=== PATIENT | male | born 1965 | race Caucasian/White ===

== ENCOUNTER 2017-06-11 13:12 | Inpatient (IN) | payer SELFPAY ==
[~2017-06-11] VITALS: Ht 167.6 cm; Wt 56.7 kg
--- NOTE | ~2017-06-11 | CON ---
[place], [place] REPORT OF CONSULTATION [id number] UN[facility] #: [id number] ROOM: 406 DOCTOR: ANGIE ODONNELLSURYA BIRTHDATE: [birth year] DOS: 06/11/2017 HISTORY OF PRESENT ILLNESS: This is a 52 years old patient who was presented to Emergency Room with chief complaint of epigastric chest pain. The patient avid nicotine and alcohol consumer of two 6 packs of beer every evening and smoking a pack of cigarette daily. The patient with a history of previous esophageal distress and dysphagia. PAST MEDICAL HISTORY: Otherwise, gastritis, COPD. PAST SURGICAL HISTORY: Unremarkable otherwise. SOCIAL HISTORY: Alcohol and nicotine. FAMILY HISTORY: Noncontributory. ALLERGIES: To no known medications. MEDICATIONS: Medication at home: None. REVIEW OF SYSTEMS: HEENT: Denies double vision, blurred vision. RESPIRATORY: Denies acute shortness of breath. CARDIOVASCULAR: Denies typical chest pain. DIGESTIVE SYSTEM: Substernal pain, dysphagia, periodically. PHYSICAL EXAMINATION: GENERAL: Nontoxic patient comfortable. He just finished his dinner. HEENT: Head, normocephalic, nontraumatic. Mouth and buccal mucosa benign. NECK: Supple, no thyromegaly. CHEST: Symmetric anatomy, equal expansion. No wheeze, no rhonchi. Decreased air entry in general. HEART: Normal sinus rhythm, no gallop, no murmur. ABDOMEN: Soft. No hepato-organomegaly. Bowel sounds present. No pulsatile mass. EXTREMITIES: No cyanosis, no pedal edema. NEUROLOGIC: Alert, oriented to time, place, person. IMPRESSION: Atypical chest pain, possible esophageal stricture, esophagitis. The patient with aggressive alcohol and nicotine dependency of two 6 pack of beer every evening and a pack of cigarette, on no medication; otherwise, labs reviewed, records reviewed, history of dysphagia in the past. CBC: White blood cell 4.9, H and H of 15 and 43. His platelets has been 173. INR 0.9. Comprehensive metabolic panel, electrolyte balance, liver function tests, SGOT 36. Alkaline phosphatase 168 abnormality secondary to aggressive alcohol consumption. Chest x-ray normal. Labs reviewed, records reviewed. PLAN: Cardiac assessment, and if negative, we will follow up as outpatient for evaluation of esophagus. [place], [place] REPORT OF CONSULTATION NAME: LIANAKENYETTA D UNIT #: [id number] ROOM: 406 DOCTOR: ANGIE ODONNELL,SURYA BIRTHDATE: [birth year] SURYA ADAMS MD CM:CONSTR:REPORT OF CONSULTATION 1656 06/11/17 2248 interface
--- NOTE | ~2017-06-11 | CON ---
[place], [place] REPORT OF CONSULTATION NAME[id number] UNIT #: [id number] ROOM: 406 DOCTOR: SHYANNE SANTACRUZ MD BIRTHDATE: [birth year] DOS: 06/11/2017 REFERRED BY: Hospitalist physician for evaluation of chest pain. CHIEF COMPLAINT: Substernal precordial pain. HISTORY OF PRESENT ILLNESS: The patient is a 52-year-old man who denies any previous history of heart disease. He does have risk factors of tobacco abuse and a possible family history of heart disease. He states that he was shaving and getting ready for work when he developed a severe stabbing pain in his central chest. This was associated with shortness of breath, nausea and vomiting. The pain came and went and so he finally came to the Emergency Room. In the Emergency Room, his electrocardiogram showed no acute changes and cardiac biomarkers are negative thus far. The patient does have a history of dysphagia and had a piece of meat stuck in his esophagus in the past. He does have occasional episodes of dysphagia since then. He does have esophageal reflux disease and does have a history of daily alcohol use. PAST MEDICAL HISTORY: Includes: 1. Cigarette abuse with a history of chronic obstructive pulmonary disease. 2. Alcohol abuse. 3. History of multiple left rib fractures with pneumothorax. 4. History of gastritis. 5. No previous history of diabetes, myocardial infarction or stroke. FAMILY HISTORY: The patient's father of complications of Alzheimer disease and he may have had cardiac arrhythmia as well. His mother has diabetes and hypertension. REVIEW OF SYSTEMS: The patient denies diplopia or loss of vision. He denies focal weakness. He denies lightheadedness or syncope. Denies fevers, chills, sweats or recent weight changes. He denies orthopnea or PND. He denies palpitations. He had chest pain as noted above. He does have cough and shortness of breath as well as dyspnea on exertion. He denies hemoptysis or hematemesis. He denies any change in bowel or bladder habits. He denies blood in his stools or urine. He denies any skin rashes. He denies peripheral edema. He denies any history of blood clots. The remainder of the review of systems is negative except as noted above. SOCIAL HISTORY: The patient does smoke at least a pack a day and drinks beer on a daily basis. 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 PHYSICAL EXAMINATION: GENERAL: The patient is a slender white male who looks older than his stated age. VITAL SIGNS: Pulse is 82 and regular. Blood pressure is 158/93. He is afebrile. HEENT: Normocephalic, atraumatic. Extraocular muscles are intact. Sclerae are [place], [place] REPORT OF CONSULTATION NAME: KENYETTA GAINES UNIT #: [id number] ROOM: 406 DOCTOR: SHYANNE SANTACRUZ MD BIRTHDATE: [birth year] clear. Pupils are equal, round and react to light. The oral mucosa is moist. Tongue is midline. NECK: Supple. He has no jugular distention. Carotids are full. I heard no bruits. He had no neck or supraclavicular masses and no thyromegaly. LUNGS: Respirations are unlabored. His chest has decreased breath sounds at the bases, but no wheezes or rales. He has no precordial chest wall pain and no presacral edema. I could not reproduce his chest pain by palpation of the chest or abdomen. HEART: Has a regular rhythm. He has a fourth heart sound, but no third heart sound or murmur. The PMI is not displaced. There is no precordial heave, lift or thrill. ABDOMEN: Soft and normally active without masses, organomegaly, bruits or tenderness. There is no rebound. EXTREMITIES: No edema. Peripheral pulses are palpable in the feet. He has no palpable cords or Homans sign. No skin rashes are obvious. LABORATORY DATA: I reviewed his electrocardiograms. They show sinus rhythm and normal tracings. Hemoglobin is 15.6, white count 4900, platelet count 173,000. Sodium 138, potassium 3.5, BUN 6, creatinine 1.08. Troponin has been normal x 2. IMPRESSION: 1. Atypical precordial chest pain. This is most likely GI in origin and may be related to esophagitis, esophageal spasm, etc. The patient does, however, have brief risk factors for coronary artery disease. We will therefore follow serial electrocardiograms and enzymes and if these are normal, plan on an exercise myocardial perfusion study within the next 24 hours. 2. Alcohol abuse. 3. Cigarette abuse. PLAN: As above. I thank the hospitalist group for asking our advice regarding the patient's care. SHYANNE SANTACRUZ MD CM:CONSTR:REPORT OF CONSULTATION 1752 06/11/17 2313 interface
--- NOTE | ~2017-06-11 | PR ---
[place], [place] PROGRESS NOTE NAME: [id number] UNIT #: [id number] ROOM: 406 DOCTOR: SHYANNE SANTACRUZ MD BIRTHDATE: [birth year] DOS: 06/12/2017 SUBJECTIVE: The patient was seen in the Cardiology Department just prior to his stress test. He states that overnight, he did have recurrence of his chest pain, but it resolved spontaneously. He was also evaluated by Dr. Sorto who is planning on doing an outpatient upper endoscopy. Overnight, the patient's laboratory studies showed no acute change or elevation in troponin. His electrocardiogram shows no change in this morning. PHYSICAL EXAMINATION: VITAL SIGNS: His pulse is 77 and regular, blood pressure is 132/88. He is afebrile. NECK: Supple. He has no jugular distention. Carotids are full. LUNGS: Respirations are unlabored. His chest is clear to auscultation and percussion. HEART: Has regular rhythm with an S4 gallop, but no S3 or murmur. The PMI is not displaced. EXTREMITIES: Showed no edema. IMPRESSION: Atypical chest pain, most likely this is gastrointestinal in origin. Thus far, the patient shows no objective findings to suggest an acute coronary syndrome. PLAN: We will proceed with an exercise myocardial perfusion study today. Further recommendations will depend upon the results of the stress test. SHYANNE SANTACRUZ MD CM:PNTRANS 1058 [id number] SHYANNE SANTACRUZ MD 06/12/17 1117 interface
[2017-06-11 13:12] VITALS: BP 147/96
[~2017-06-11 13:12] MED LIST: ACETAMINOPHEN-H1 TA2 PO; DOXYCYCLINE MO100 MG PO; IBU800 MG PO; KROGER NIC21 MG/24 H T; MUCINEX DM 30/61 TAB PO; PEPCID20 MG PO; PROZAC20 MG PO; ULTRAM50 MG PO; VENTOLIN H0.09 MG/AC INH; XANAX0.25 MG PO; ZITHROMAX250 MG PO
[2017-06-11 13:33] LABS: BASO # 0.1 10*3/uL (0.0-0.1); EOS % 0.8 % (1.0-4.0); HEMATOCRIT 43.8 % (42.0-52.0); HEMOGLOBIN 15.6 g/dl (14.0-18.0); LYMPH # 1.5 10*3/uL (1.3-4.4); LYMPH % 29.5 % (27.0-41.0); MEAN CELL VOLUME 98.4 fl (80.0-94.0); MEAN CORPUSCULAR HGB 35.1 pg (27.0-31.0); MEAN CORPUSCULAR HGB CONC 35.6 g/dl (33.0-37.0); MONO # 0.5 10*3/uL (0.1-1.0); MONO % 9.8 % (3.0-9.0); NEUT # 2.9 10*3/uL (2.3-7.9); NEUT % 58.7 % (47.0-73.0); PLATELET COUNT AUTOMATED 173 10*3/uL (130-400); RED BLOOD COUNT 4.45 10*6/uL (4.50-5.90); RED CELL DISTRI WIDTH 11.7 % (0-14.5); WHITE BLOOD COUNT 4.9 10*3/uL (4.8-10.8)
[2017-06-11 13:42] LABS: ACT PARTIAL THROMBO TIME 24.8 SECONDS (20.8-31.5); INTERNATIONAL NORM RATIO 0.9 (2.0-3.5)
[2017-06-11 13:52] LABS: ALBUMIN 3.4 gm/dl (3.1-4.5); ALKALINE PHOSPHATASE 168 U/L (45-117); BUN 6 mg/dl (7-24); CHLORIDE 104 mmol/L (98-107); CREATININE 1.08 mg/dL (0.70-1.30); POTASSIUM 3.5 mmol/L (3.5-5.1); SGOT/AST 36 IU/L (3-35); SGPT/ALT 20 U/L (12-78); SODIUM 138 mmol/L (136-145); TOTAL PROTEIN 7.3 gm/dL (6.4-8.2)
[2017-06-11 13:53] VITALS: BP 140/82
[2017-06-11 13:54] LABS: TROPONIN I < 0.015 ng/ml (<0.045)
[2017-06-11 15:00] VITALS: BP 158/93
[2017-06-11 20:00] VITALS: BP 127/81
[2017-06-12] VITALS: BP 136/90
[2017-06-12 07:24] LABS: BASO # 0.1 10*3/uL (0.0-0.1); BASO % 1.5 % (0.0-1.0); EOS # 0.1 10*3/uL (0.0-0.4); EOS % 1.3 % (1.0-4.0); HEMATOCRIT 46.5 % (42.0-52.0); HEMOGLOBIN 16.3 g/dl (14.0-18.0); LYMPH # 1.4 10*3/uL (1.3-4.4); LYMPH % 26.2 % (27.0-41.0); MEAN CELL VOLUME 99.1 fl (80.0-94.0); MEAN CORPUSCULAR HGB 34.8 pg (27.0-31.0); MEAN CORPUSCULAR HGB CONC 35.1 g/dl (33.0-37.0); MEAN PLATELET VOLUME 10.1 fl (9.6-12.3); MONO # 0.5 10*3/uL (0.1-1.0); MONO % 9.8 % (3.0-9.0); NEUT # 3.2 10*3/uL (2.3-7.9); PLATELET COUNT AUTOMATED 164 10*3/uL (130-400); RED BLOOD COUNT 4.69 10*6/uL (4.50-5.90); RED CELL DISTRI WIDTH 11.8 % (0-14.5); WHITE BLOOD COUNT 5.2 10*3/uL (4.8-10.8)
[2017-06-12 07:52] LABS: ALBUMIN 3.3 gm/dl (3.1-4.5); ALKALINE PHOSPHATASE 159 U/L (45-117); BUN 8 mg/dl (7-24); CHLORIDE 107 mmol/L (98-107); CHOLESTEROL 156 mg/dL (<200); CREATININE 0.93 mg/dL (0.70-1.30); FREE T4 1.15 ng/dl (0.76-1.46); HDL CHOLESTEROL 85 mg/dl (40-60); LDL CHOLESTEROL 50 mg/dL (9-159); PHOSPHOROUS 2.9 mg/dL (2.5-4.9); POTASSIUM 3.6 mmol/L (3.5-5.1); SGOT/AST 32 IU/L (3-35); SGPT/ALT 19 U/L (12-78); SODIUM 141 mmol/L (136-145); TRIGLYCERIDES 106 mg/dl (<150); VLDL CHOLESTEROL 21 mg/dL (6-40)
[2017-06-12 08:00] VITALS: BP 132/88
[2017-06-12 08:24] LABS: VITAMIN D, 25-HYDROXY 8.6 ng/mL (30-100)
[2017-06-12 16:00] VITALS: BP 120/76
[2017-06-12] MEDS ORDERED: VITAMIN D-32000 UNIT PO (17:16)
[2017-06-12] MEDS ORDERED: OMEPRAZOLE20 M2 PO (18:35)
== END 2017-06-12 18:56 | disposition home or self-care (01) | DRG 206 ==
LOC: ED 13:12 → 4E 14:08 → EDHOLD 14:08 → 4E 14:36
PROVIDERS: Student in an Organized Health Care Education/Training Program
PROC: 4A02XM4 Measurement of Cardiac Total Activity, External Approach (ICD-10-PCS; principal; 2017-06-12)
DX: M94.0 Chondrocostal junction syndrome [Tietze] (principal); E83.41 Hypermagnesemia; R13.10 Dysphagia, unspecified; K21.9 Gastro-esophageal reflux disease without esophagitis; R09.1 Pleurisy; D75.89 Other specified diseases of blood and blood-forming organs; F10.10 Alcohol abuse, uncomplicated; J44.9 Chronic obstructive pulmonary disease, unspecified; F17.210 Nicotine dependence, cigarettes, uncomplicated; Z71.6 Tobacco abuse counseling

== ENCOUNTER → 2017-06-21 | Outpatient (CLI) | payer SELFPAY ==
[~2017-06-21] MED LIST changes: +OMEPRAZOLE20 M2 PO; +VITAMIN D-32000 UNIT PO
== END ==
LOC: RESCLI 02:26
DX: Z09 Encounter for follow-up examination after completed treatment for conditions other than malignant neoplasm (principal); K29.50 Unspecified chronic gastritis without bleeding; E55.9 Vitamin D deficiency, unspecified; R13.10 Dysphagia, unspecified; J44.9 Chronic obstructive pulmonary disease, unspecified; Z72.0 Tobacco use; Z71.6 Tobacco abuse counseling

== ENCOUNTER → 2017-07-07 | Day surgery (SDC) | payer SELFPAY ==
[~2017-07-07] VITALS: Ht 167.6 cm; Wt 56.7 kg
--- NOTE | ~2017-07-07 | O ---
[place], [place] OPERATIVE NOTE NAME: LIANATERRIEMerna King UNIT #: [id number] ROOM: DOCTOR: SURYA ADAMS MD BIRTHDATE: [birth year] DOS: 07/07/2017 GASTROENDOSCOPIC REPORT INDICATIONS: This is a 52-year-old patient who presented with dyspepsia, dysphagia, undergoing investigation. PAST MEDICAL HISTORY: Essentially unremarkable except dyspepsia, dysphagia. ALLERGIES: No known medication. PAST SURGICAL HISTORY: Nil. PAST MEDICAL HISTORY: As identified above. PROCEDURE: Today's procedure part of investigation is panendoscopy plus biopsy of distal esophagus plus balloon dilation of esophagus. PREMEDICATION: Versed and Diprivan. SCOPE: Olympus forward-viewing gastroscope Q10 video. REPORT: After putting the patient in left lateral position and application of lubricant to the scope, the scope was introduced. Thereafter, under direct visualization, I advanced through the length of esophagus without difficulty. Short segment Zhong esophagus above the hiatal hernia was noticed. Biopsies obtained. Gastric pouch was entered. Gastritis seen. Duodenal bulb, second and third part within normal limit. The patient extubated to the proximal stomach, a balloon size 20 was utilized; however, up to pressure 19 was used and distal as well as upper esophagus was dilated. The patient extubated, tolerated procedure well. IMPRESSION: Distal esophageal and upper esophageal stricture, short segment Zhong esophagus, status post biopsy, hiatal hernia, gastritis. PLAN AND DISCUSSION: This gentleman is on omeprazole already, 20 mg daily for the next 2 weeks. I will ask him to increase his omeprazole to 20 mg b.i.d. as well today and tomorrow to stay on ice cream, milk shake, ice cold Jell-O to prevent food trauma to the mucosal pathology of residual fracturing of the mucosa which is intended with dilation. Otherwise, follow up routinely with you in office and p.r.n. visit with us in GI Clinic. Thank you very much indeed. [place], [place] OPERATIVE NOTE NAME: KENYETTA GAINES UNIT #: [id number] ROOM: DOCTOR: SURYA ADAMS MD BIRTHDATE: [birth year] SURYA ADAMS MD CM:OPRECORD:OPERATIVE NOTE 1123 1405 SURYA ADAMS MD 07/07/17 1404 interface
[2017-07-07 09:40] VITALS: BP 155/91
[2017-07-07 11:12] VITALS: BP 118/74
[2017-07-07 11:22] VITALS: BP 113/75
[2017-07-07 11:42] VITALS: BP 131/91
== END | disposition home or self-care (01) ==
LOC: SDC 07-04 14:45
DX: K22.2 Esophageal obstruction (principal); K44.9 Diaphragmatic hernia without obstruction or gangrene; K22.70 Barrett's esophagus without dysplasia; F41.9 Anxiety disorder, unspecified; F17.210 Nicotine dependence, cigarettes, uncomplicated; Z82.49 Family history of ischemic heart disease and other diseases of the circulatory system

== ENCOUNTER → 2017-08-18 | Day surgery (SDC) | payer SELFPAY ==
[~2017-08-18] VITALS: Ht 167.6 cm; Wt 58.1 kg
--- NOTE | ~2017-08-18 | O ---
[place], [place] OPERATIVE NOTE NAME: LIANAKENYETTA King UNIT #: [id number] ROOM: DOCTOR: SURYA ADAMS MD BIRTHDATE: [birth year] DOS: 08/18/2017 INDICATIONS: This is a 52-year-old patient who has presented with chief complaint of dyspepsia, dysphagia and colonic screening, undergoing investigation. ALLERGIES: To no known medications. PAST MEDICAL HISTORY: COPD. PAST SURGICAL HISTORY: Unremarkable. FAMILY HISTORY: Grandfather and uncles with colon carcinoma. SOCIAL HISTORY: Udg-uph-u-half pack smoker, 6-10 beers per night drinking. PROCEDURE: Today's procedure part of investigation is panendoscopy and colonoscopy. PREMEDICATION: Versed and Diprivan. SCOPE: Olympus forward-viewing gastroscope Q10 video. REPORT: After putting the patient in left lateral position and application of lubricant to the scope, the scope was introduced. Thereafter, under direct visualization, advanced through the length of esophagus without difficulty. Benign stricture was identified. This is mostly in cervical esophagus. Gastric pouch was entered. Short segment Zhong esophagus noticed. Gastritis seen. Antral biopsy obtained. Duodenal bulb, second and third part within normal limits. Balloon size 18 utilized and esophagus was dilated. The patient extubated, tolerated procedure well. IMPRESSION: Benign esophageal stricture, status post balloon dilation; gastritis, status post biopsy; and short segment Zhong, status post biopsy. PLAN AND DISCUSSION: Prilosec 20 mg 1 b.i.d. The patient advised to abstain from smoking lrz-jra-a-half pack of cigarettes and 10 beers per day. Furthermore, we are going to proceed with his colonoscopy. INDICATIONS: The patient has presented with colonic screening concerns. PROCEDURE: Today's procedure part of investigation is colonoscopy plus piecemeal polypectomy. PREMEDICATION: Versed and Diprivan. SCOPE: Olympus folding colonoscope 10L video. REPORT: After putting the patient in left lateral position and application of lubricant to rectal pouch and digital examination, the scope was introduced. [place], [place] OPERATIVE NOTE NAME: KENYETTA GAINES UNIT #: [id number] ROOM: DOCTOR: SURYA ADAMS MD BIRTHDATE: [birth year] Thereafter, under direct visualization, advanced through the length of colon without difficulty. Sessile polypoid lesion from sigmoid colon with piecemeal polypectomy removed. Base of the cecum explored, appendiceal orifice identified, and ileocecal valve was defined. The patient extubated, tolerated procedure well. IMPRESSION: Sessile polypoid lesion in sigmoid colon, status post piecemeal polypectomy. PLAN: High fiber fruit diet. Avoiding cpn-mlc-j-half pack of cigarettes per day and avoiding 10 beers per day. SURYA ADAMS MD CM:OPRECORD:OPERATIVE NOTE 1413 03 SURYA ADAMS MD 08/18/17 1704 interface
[2017-08-18 14:00] VITALS: BP 102/65
[2017-08-18 14:15] VITALS: BP 114/75
[2017-08-18 14:30] VITALS: BP 123/83
== END | disposition home or self-care (01) ==
LOC: SDC 08-14 12:30
DX: Z12.11 Encounter for screening for malignant neoplasm of colon (principal); D12.5 Benign neoplasm of sigmoid colon; K29.50 Unspecified chronic gastritis without bleeding; K22.2 Esophageal obstruction; J44.9 Chronic obstructive pulmonary disease, unspecified; F17.210 Nicotine dependence, cigarettes, uncomplicated; Z79.899 Other long term (current) drug therapy; Z80.0 Family history of malignant neoplasm of digestive organs

== ENCOUNTER → 2017-09-18 | Outpatient (CLI) | payer SELFPAY | END | disposition home or self-care (01) | LOC: RESCLI 00:01 | DX: K29.50 Unspecified chronic gastritis without bleeding (principal); E55.9 Vitamin D deficiency, unspecified; J44.9 Chronic obstructive pulmonary disease, unspecified; F41.9 Anxiety disorder, unspecified; K22.710 Barrett's esophagus with low grade dysplasia; K21.0 Gastro-esophageal reflux disease with esophagitis; K44.9 Diaphragmatic hernia without obstruction or gangrene; F17.210 Nicotine dependence, cigarettes, uncomplicated; Z87.19 Personal history of other diseases of the digestive system; Z98.890 Other specified postprocedural states; Z71.6 Tobacco abuse counseling ==

== ENCOUNTER → 2017-11-13 | Outpatient (CLI) | payer SELFPAY | END | disposition home or self-care (01) | LOC: RESCLI 04:55 | DX: K29.50 Unspecified chronic gastritis without bleeding (principal); K21.0 Gastro-esophageal reflux disease with esophagitis; E55.9 Vitamin D deficiency, unspecified; J44.9 Chronic obstructive pulmonary disease, unspecified; F41.9 Anxiety disorder, unspecified; K22.710 Barrett's esophagus with low grade dysplasia; K44.9 Diaphragmatic hernia without obstruction or gangrene; F17.210 Nicotine dependence, cigarettes, uncomplicated; E66.3 Overweight; Z71.6 Tobacco abuse counseling ==

== ENCOUNTER 2018-01-07 12:04 | Inpatient (IN) | payer SELFPAY ==
[2018-01-07] VITALS (8 sets, daily range): BP systolic 134–157; BP diastolic 82–100
[~2018-01-07] VITALS: Ht 167.6 cm; Wt 55.5 kg
--- NOTE | ~2018-01-07 | EKG ---
[place], [place] ELECTROCARDIOGRAM REPORT NAME: KENYETTA GAINES UNIT #: [id number] ROOM: 521 DOCTOR: KIT DRAFT REPORT BIRTHDATE: [birth year] [facility] Test Date: 2018-01-07 Test Time: 12:07:12 Pat Name: KENYETTA GAINES Department: Room: 521 Gender: M Behavioral Health Care Coordinator: EKG.MN : 1965 Requested By: SANDRA DIAZ Order Number: [id number] Reading MD: Torin Dietz MD Measurements Intervals [place] Rate: 89 P: 79 ID: 122 QRS: 79 QRSD: 96 T: 48 QT: 369 QTc: 449 Interpretive Statements Sinus rhythm Probable left atrial enlargement Anteroseptal infarct, age indeterminate Electronically Signed On 01-08-2018 16:48:27 PDT by Torin Dietz MD CM:EKGRPT:ELECTROCARDIOGRAM REPORT 1207 1648 SANDRA PANTOJA DRAFT REPORT SANDRA DIAZ M.D.
[2018-01-07 12:27] LABS: BASO # 0.1 10*3/uL (0.0-0.1); BASO % 1.2 % (0.0-1.0); EOS # 0.1 10*3/uL (0.0-0.4); EOS % 1.8 % (1.0-4.0); HEMOGLOBIN 17.2 g/dl (14.0-18.0); LYMPH # 1.3 10*3/uL (1.3-4.4); LYMPH % 25.8 % (27.0-41.0); MEAN CELL VOLUME 97.4 fl (80.0-94.0); MEAN CORPUSCULAR HGB 34.2 pg (27.0-31.0); MEAN CORPUSCULAR HGB CONC 35.1 g/dl (33.0-37.0); MONO # 0.5 10*3/uL (0.1-1.0); NEUT # 3.2 10*3/uL (2.3-7.9); PLATELET COUNT AUTOMATED 149 10*3/uL (130-400); RED BLOOD COUNT 5.03 10*6/uL (4.50-5.90); RED CELL DISTRI WIDTH 11.9 % (0-14.5); WHITE BLOOD COUNT 5.1 10*3/uL (4.8-10.8)
[2018-01-07 12:44] LABS: ALBUMIN 3.5 gm/dl (3.1-4.5); ALKALINE PHOSPHATASE 148 U/L (45-117); BUN 4 mg/dl (7-24); CHLORIDE 105 mmol/L (98-107); CREATININE 1.01 mg/dL (0.70-1.30); POTASSIUM 3.8 mmol/L (3.5-5.1); SGOT/AST 24 IU/L (3-35); SGPT/ALT 15 U/L (12-78); SODIUM 139 mmol/L (136-145); TOTAL PROTEIN 7.1 gm/dL (6.4-8.2)
[2018-01-07 12:45] LABS: TROPONIN I < 0.015 ng/ml (<0.045)
[2018-01-07] MEDS ORDERED: PRILOSEC20 M1 PO (16:52)
[2018-01-08] VITALS: BP 123/79
[2018-01-08 06:32] LABS: BASO # 0.1 10*3/uL (0.0-0.1); BASO % 1.4 % (0.0-1.0); EOS # 0.1 10*3/uL (0.0-0.4); EOS % 2.5 % (1.0-4.0); HEMATOCRIT 48.7 % (42.0-52.0); HEMOGLOBIN 16.8 g/dl (14.0-18.0); LYMPH # 1.8 10*3/uL (1.3-4.4); LYMPH % 36.2 % (27.0-41.0); MEAN CORPUSCULAR HGB 34.1 pg (27.0-31.0); MEAN CORPUSCULAR HGB CONC 34.5 g/dl (33.0-37.0); MEAN PLATELET VOLUME 10.3 fl (9.6-12.3); MONO # 0.5 10*3/uL (0.1-1.0); MONO % 9.4 % (3.0-9.0); NEUT # 2.5 10*3/uL (2.3-7.9); NEUT % 50.3 % (47.0-73.0); PLATELET COUNT AUTOMATED 138 10*3/uL (130-400); RED BLOOD COUNT 4.92 10*6/uL (4.50-5.90); RED CELL DISTRI WIDTH 11.9 % (0-14.5); WHITE BLOOD COUNT 4.9 10*3/uL (4.8-10.8)
[2018-01-08 06:59] LABS: ACT PARTIAL THROMBO TIME 22.7 SECONDS (20.8-31.5)
[2018-01-08 07:04] LABS: ALBUMIN 3.3 gm/dl (3.1-4.5); BUN 9 mg/dl (7-24); CHLORIDE 109 mmol/L (98-107); POTASSIUM 3.8 mmol/L (3.5-5.1); SODIUM 141 mmol/L (136-145)
[2018-01-08 07:13] LABS: ALKALINE PHOSPHATASE 133 U/L (45-117); CHOLESTEROL 138 mg/dL (<200); CREATININE 0.87 mg/dL (0.70-1.30); FREE T4 0.92 ng/dl (0.76-1.46); HDL CHOLESTEROL 56 mg/dl (40-60); LDL CHOLESTEROL 58 mg/dL (9-159); PHOSPHOROUS 2.8 mg/dL (2.5-4.9); SGOT/AST 25 IU/L (3-35); SGPT/ALT 16 U/L (12-78); TOTAL PROTEIN 6.7 gm/dL (6.4-8.2); TRIGLYCERIDES 118 mg/dl (<150); VLDL CHOLESTEROL 24 mg/dL (6-40)
[2018-01-08 07:36] LABS: VITAMIN D, 25-HYDROXY 36.3 ng/mL (30-100)
[2018-01-08 08:00] VITALS: BP 124/84; BP 139/80
[2018-01-08] MEDS ORDERED: PRILOSEC20 M1 PO (11:21)
[2018-01-08 12:00] VITALS: BP 116/80
== END 2018-01-08 12:05 | disposition home or self-care (01) | DRG 392 ==
LOC: ED 12:04 → 5E 15:57 → EDHOLD 15:57 → 5E 16:04
PROVIDERS: Emergency Medicine; Internal Medicine
DX: K21.9 Gastro-esophageal reflux disease without esophagitis (principal); R13.10 Dysphagia, unspecified; F10.10 Alcohol abuse, uncomplicated; I10 Essential (primary) hypertension; R73.9 Hyperglycemia, unspecified; R74.8 Abnormal levels of other serum enzymes; R05 Cough; K22.70 Barrett's esophagus without dysplasia; J44.9 Chronic obstructive pulmonary disease, unspecified; F41.0 Panic disorder [episodic paroxysmal anxiety]; Z71.6 Tobacco abuse counseling; Z72.0 Tobacco use; Z82.49 Family history of ischemic heart disease and other diseases of the circulatory system; Z79.899 Other long term (current) drug therapy; Z83.3 Family history of diabetes mellitus; Z82.0 Family history of epilepsy and other diseases of the nervous system; Z82.3 Family history of stroke; Z81.8 Family history of other mental and behavioral disorders

== ENCOUNTER → 2018-02-13 | Outpatient (CLI) | payer SELFPAY ==
[~2018-02-13] MED LIST changes: +CHLORZOXAZONE500 M2 PO; +LISINOPRIL5 MG PO; +NAPROSYN500 MG PO; +OMEPRAZOLE40 MG PO; +PRILOSEC20 M1 PO
== END ==
LOC: RESCLI 03:46
DX: Z00.01 Encounter for general adult medical examination with abnormal findings (principal); K29.50 Unspecified chronic gastritis without bleeding; J44.9 Chronic obstructive pulmonary disease, unspecified; E55.9 Vitamin D deficiency, unspecified; I10 Essential (primary) hypertension; Z71.6 Tobacco abuse counseling; Z78.9 Other specified health status; Z79.899 Other long term (current) drug therapy; Z88.8 Allergy status to other drugs, medicaments and biological substances; K22.710 Barrett's esophagus with low grade dysplasia

== ENCOUNTER → 2018-02-20 | Outpatient (CLI) | payer SELFPAY | END | disposition home or self-care (01) | LOC: RESCLI 00:45 | DX: Z00.01 Encounter for general adult medical examination with abnormal findings (principal); K29.50 Unspecified chronic gastritis without bleeding; J44.9 Chronic obstructive pulmonary disease, unspecified; E55.9 Vitamin D deficiency, unspecified; K22.710 Barrett's esophagus with low grade dysplasia; I10 Essential (primary) hypertension; Z71.6 Tobacco abuse counseling; Z78.9 Other specified health status; Z79.899 Other long term (current) drug therapy; Z88.8 Allergy status to other drugs, medicaments and biological substances ==

== ENCOUNTER 2018-03-23 10:41 | Emergency (ER) | payer SELFPAY ==
[~2018-03-23] VITALS: Ht 167.6 cm; Wt 59.0 kg
--- NOTE | ~2018-03-23 | EKG ---
[place], [place] ELECTROCARDIOGRAM REPORT NAME: KENYETTA GAINES UNIT #: [id number] ROOM: DOCTOR: EPIPHANY DRAFT REPORT BIRTHDATE: [birth year] [facility] Test Date: 2018-03-23 Test Time: 10:53:58 Pat Name: KENYETTA GAINES Department: Room: Gender: Airplane Inspector: Bonita Méndez : 1965 Requested By: MICHELE TAYLOR Order Number: [id number] Reading MD: Stefanie Lehman MD Measurements Intervals [place] Rate: 66 P: 69 [place]: 121 QRS: 91 QRSD: 100 T: 36 QT: 407 QTc: 427 Interpretive Statements Sinus rhythm Borderline right axis deviation Compared to ECG 01/16/2018 08:52:15 No significant changes Electronically Signed On 03-23-2018 12:13:05 PDT by Stefanie Lehman MD CM:EKGRPT:ELECTROCARDIOGRAM REPORT 1053 1213 MICHELE TAYLOR EPIPHANY DRAFT REPORT MICHELE TAYLOR
[~2018-03-23 10:41] MED LIST changes: -CHLORZOXAZONE500 M2 PO; -LISINOPRIL5 MG PO; -NAPROSYN500 MG PO
[2018-03-23] MEDS ORDERED: LISINOPRIL5 MG PO (10:45)
[2018-03-23 11:09] LABS: BASO # 0.1 10*3/uL (0.0-0.1); BASO % 1.3 % (0.0-1.0); EOS # 0.1 10*3/uL (0.0-0.4); EOS % 1.7 % (1.0-4.0); HEMATOCRIT 50.9 % (42.0-52.0); HEMOGLOBIN 17.2 g/dl (14.0-18.0); LYMPH # 1.6 10*3/uL (1.3-4.4); LYMPH % 34.9 % (27.0-41.0); MEAN CELL VOLUME 100.8 fl (80.0-94.0); MEAN CORPUSCULAR HGB 34.1 pg (27.0-31.0); MEAN CORPUSCULAR HGB CONC 33.8 g/dl (33.0-37.0); MEAN PLATELET VOLUME 10.1 fl (9.6-12.3); MONO # 0.4 10*3/uL (0.1-1.0); MONO % 7.9 % (3.0-9.0); NEUT # 2.5 10*3/uL (2.3-7.9); NEUT % 53.8 % (47.0-73.0); PLATELET COUNT AUTOMATED 180 10*3/uL (130-400); RED BLOOD COUNT 5.05 10*6/uL (4.50-5.90); WHITE BLOOD COUNT 4.7 10*3/uL (4.8-10.8)
[2018-03-23 11:21] LABS: ALBUMIN 3.7 gm/dl (3.1-4.5); BUN 6 mg/dl (7-24); CHLORIDE 108 mmol/L (98-107); CREATININE 0.96 mg/dL (0.70-1.30); LIPASE 162 U/L (73-393); SGOT/AST 23 IU/L (3-35); SGPT/ALT 19 U/L (12-78); SODIUM 143 mmol/L (136-145); TOTAL PROTEIN 7.9 gm/dL (6.4-8.2)
[2018-03-23 11:23] LABS: ALKALINE PHOSPHATASE 161 U/L (45-117)
[2018-03-23 11:29] LABS: TROPONIN I < 0.015 ng/ml (<0.045)
[2018-03-23] MEDS ORDERED: NAPROSYN500 MG PO (12:06)
[2018-03-23] MEDS ORDERED: CHLORZOXAZONE500 M2 PO (12:06)
== END 2018-03-23 12:12 | disposition home or self-care (01) ==
LOC: ED 10:41
PROVIDERS: Nurse Practitioner Family
DX: S16.1XXA Strain of muscle, fascia and tendon at neck level, initial encounter (principal); I10 Essential (primary) hypertension; J44.9 Chronic obstructive pulmonary disease, unspecified; K21.9 Gastro-esophageal reflux disease without esophagitis; F17.200 Nicotine dependence, unspecified, uncomplicated; Z79.899 Other long term (current) drug therapy; X58.XXXA Exposure to other specified factors, initial encounter; Y93.89 Activity, other specified; Y92.89 Other specified places as the place of occurrence of the external cause; Y99.8 Other external cause status

== ENCOUNTER → 2018-07-19 | Outpatient (CLI) | payer SELFPAY ==
[~2018-07-19] MED LIST changes: +CHLORZOXAZONE500 M2 PO; +LISINOPRIL5 MG PO; +NAPROSYN500 MG PO
== END | disposition home or self-care (01) ==
LOC: RESCLI 13:04
DX: K22.710 Barrett's esophagus with low grade dysplasia (principal); K21.0 Gastro-esophageal reflux disease with esophagitis; I10 Essential (primary) hypertension; F41.9 Anxiety disorder, unspecified; K29.50 Unspecified chronic gastritis without bleeding; E55.9 Vitamin D deficiency, unspecified; J44.9 Chronic obstructive pulmonary disease, unspecified; F17.210 Nicotine dependence, cigarettes, uncomplicated; Z92.89 Personal history of other medical treatment; Z87.19 Personal history of other diseases of the digestive system; Z98.890 Other specified postprocedural states; Z71.6 Tobacco abuse counseling; Z79.899 Other long term (current) drug therapy; Z88.8 Allergy status to other drugs, medicaments and biological substances

== ENCOUNTER → 2018-11-01 | Outpatient (CLI) | payer SELFPAY | END | disposition home or self-care (01) | LOC: RESCLI 01:52 | DX: K22.710 Barrett's esophagus with low grade dysplasia (principal); I10 Essential (primary) hypertension; E55.9 Vitamin D deficiency, unspecified; J44.9 Chronic obstructive pulmonary disease, unspecified; Z71.6 Tobacco abuse counseling; Z72.0 Tobacco use; Z79.899 Other long term (current) drug therapy; Z88.8 Allergy status to other drugs, medicaments and biological substances ==

== ENCOUNTER → 2019-01-23 | Outpatient (CLI) | payer SELFPAY ==
--- NOTE | ~2019-01-23 | EKG ---
[place], [place] ELECTROCARDIOGRAM REPORT NAME: KENYETTA GAINES UNIT #: [id number] ROOM: DOCTOR: EPIPHANY DRAFT REPORT BIRTHDATE: [birth year] [facility] Test Date: 2019-01-23 Test Time: 16:29:50 Pat Name: KENYETTA GAINES Department: Room: Gender: M Multi Spindle Operator: Bonita Méndez : 1965 Requested By: IRAIDA GUEVARA Order Number: [id number] Reading MD: Johnson Erwin MD Measurements Intervals [place] Rate: 68 P: 75 [place]: 132 QRS: 78 QRSD: 96 T: 63 QT: 395 QTc: 421 Interpretive Statements Sinus rhythm Compared to ECG 07/12/2018 13:21:59 No significant changes Electronically Signed On 01-29-2019 8:59:20 PDT by Johnson Erwin MD CM:EKGRPT:ELECTROCARDIOGRAM REPORT 1629 0859 IRADIA PANTOJA DRAFT REPORT IRAIDA GUEVARA MD
== END | disposition home or self-care (01) ==
LOC: RESCLI 01:08
DX: J44.9 Chronic obstructive pulmonary disease, unspecified (principal); E55.9 Vitamin D deficiency, unspecified; I10 Essential (primary) hypertension; K22.710 Barrett's esophagus with low grade dysplasia; R42 Dizziness and giddiness; Z79.899 Other long term (current) drug therapy; Z88.8 Allergy status to other drugs, medicaments and biological substances

== ENCOUNTER → 2019-01-26 | Outpatient (CLI) | payer SELFPAY ==
[2019-01-26 09:01] LABS: BASO # 0.1 10*3/uL (0.0-0.1); BASO % 1.5 % (0.0-1.0); EOS # 0.1 10*3/uL (0.0-0.4); EOS % 2.4 % (1.0-4.0); HEMATOCRIT 50.4 % (42.0-52.0); HEMOGLOBIN 17.2 g/dl (14.0-18.0); LYMPH # 1.4 10*3/uL (1.3-4.4); LYMPH % 30.6 % (27.0-41.0); MEAN CELL VOLUME 99.6 fl (80.0-94.0); MEAN CORPUSCULAR HGB CONC 34.1 g/dl (33.0-37.0); MEAN PLATELET VOLUME 9.9 fl (9.6-12.3); MONO # 0.5 10*3/uL (0.1-1.0); MONO % 9.6 % (3.0-9.0); NEUT # 2.6 10*3/uL (2.3-7.9); NEUT % 55.7 % (47.0-73.0); PLATELET COUNT AUTOMATED 182 10*3/uL (130-400); RED BLOOD COUNT 5.06 10*6/uL (4.50-5.90); RED CELL DISTRI WIDTH 12.1 % (0-14.5); WHITE BLOOD COUNT 4.7 10*3/uL (4.8-10.8)
[2019-01-26 09:01] LABS: BILIRUBIN NEGATIVE (NEGATIVE); BLOOD NEGATIVE (NEGATIVE); CLARITY CLEAR (CLEAR); COLOR YELLOW (YELLOW); GLUCOSE NEGATIVE (NEGATIVE); KETONE NEGATIVE (NEGATIVE); LEUKO ESTERASE NEGATIVE (NEGATIVE); NITRITE NEGATIVE (NEGATIVE); SPECIFIC GRAVITY <= 1.005 (1.005-1.030); UROBILINOGEN 0.2 E.U./dl (0.2-1.0)
[2019-01-26 09:20] LABS: BUN 5 mg/dl (7-24); CHLORIDE 111 mmol/L (98-107); CREATININE 0.96 mg/dL (0.70-1.30); POTASSIUM 3.9 mmol/L (3.5-5.1); SODIUM 143 mmol/L (136-145)
[2019-01-26 09:21] LABS: TROPONIN I < 0.015 ng/ml (<0.045)
== END | disposition home or self-care (01) ==
LOC: LAB 08:36 → CT 09:00
PROVIDERS: Internal Medicine
DX: J44.9 Chronic obstructive pulmonary disease, unspecified (principal); R51 Headache; R42 Dizziness and giddiness; K22.710 Barrett's esophagus with low grade dysplasia; I10 Essential (primary) hypertension; E55.9 Vitamin D deficiency, unspecified

== ENCOUNTER → 2019-01-30 | Outpatient (CLI) | payer SELFPAY | END | disposition home or self-care (01) | LOC: RESCLI 01:59 | DX: R42 Dizziness and giddiness (principal); I10 Essential (primary) hypertension; K21.0 Gastro-esophageal reflux disease with esophagitis; K22.710 Barrett's esophagus with low grade dysplasia; F41.9 Anxiety disorder, unspecified; J44.9 Chronic obstructive pulmonary disease, unspecified; E55.9 Vitamin D deficiency, unspecified; Z79.899 Other long term (current) drug therapy; Z88.8 Allergy status to other drugs, medicaments and biological substances ==

== ENCOUNTER → 2019-01-31 | Outpatient (CLI) | payer SELFPAY | END | disposition home or self-care (01) | LOC: CARD 08:54 | DX: R42 Dizziness and giddiness (principal); I10 Essential (primary) hypertension; F41.9 Anxiety disorder, unspecified ==

== ENCOUNTER → 2019-02-18 | Outpatient (CLI) | payer SELFPAY | END | disposition home or self-care (01) | LOC: US 00:12 | DX: I65.23 Occlusion and stenosis of bilateral carotid arteries (principal); I10 Essential (primary) hypertension; F41.9 Anxiety disorder, unspecified; F17.200 Nicotine dependence, unspecified, uncomplicated; R55 Syncope and collapse ==

== ENCOUNTER → 2019-02-27 | Outpatient (CLI) | payer SELFPAY | END | disposition home or self-care (01) | LOC: RESCLI 02:13 | DX: Z23 Encounter for immunization (principal); K22.710 Barrett's esophagus with low grade dysplasia; I10 Essential (primary) hypertension; E55.9 Vitamin D deficiency, unspecified; J44.9 Chronic obstructive pulmonary disease, unspecified; F17.210 Nicotine dependence, cigarettes, uncomplicated; Z79.899 Other long term (current) drug therapy ==

== ENCOUNTER → 2019-11-06 | Outpatient (CLI) | payer SELFPAY | END | disposition home or self-care (01) | LOC: RESCLI 00:20 | DX: J44.9 Chronic obstructive pulmonary disease, unspecified (principal); L23.7 Allergic contact dermatitis due to plants, except food; I10 Essential (primary) hypertension; E55.9 Vitamin D deficiency, unspecified; F17.210 Nicotine dependence, cigarettes, uncomplicated; K22.710 Barrett's esophagus with low grade dysplasia; K21.9 Gastro-esophageal reflux disease without esophagitis; Z79.899 Other long term (current) drug therapy; Z98.890 Other specified postprocedural states ==

== ENCOUNTER → 2020-07-17 | Outpatient (CLI) | payer SELFPAY | END | disposition home or self-care (01) | LOC: COVID19 13:44 | PROVIDERS: ATTEND Internal Medicine | DX: Z20.822 Contact with and (suspected) exposure to COVID-19 (principal); R06.02 Shortness of breath ==

== ENCOUNTER 2021-05-26 12:37 | Emergency (ER) | payer OTHER ==
[~2021-05-26] VITALS: Wt 59.0 kg
[2021-05-26 13:32] LABS: BASO # 0.1 10*3/uL (0.0-0.1); BASO % 0.8 % (0.0-1.0); EOS # 0.1 10*3/uL (0.0-0.4); EOS % 1.5 % (1.0-4.0); LYMPH # 1.9 10*3/uL (1.3-4.4); LYMPH % 31.7 % (27.0-41.0); MEAN CELL VOLUME 96.7 fl (80.0-94.0); MEAN CORPUSCULAR HGB 33.8 pg (27.0-31.0); MEAN PLATELET VOLUME 9.7 fl (9.6-12.3); MONO # 0.5 10*3/uL (0.1-1.0); MONO % 8.5 % (3.0-9.0); NEUT # 3.5 10*3/uL (2.3-7.9); NEUT % 57.2 % (47.0-73.0); PLATELET COUNT AUTOMATED 209 10*3/uL (130-400); RED BLOOD COUNT 4.55 10*6/uL (4.50-5.90); RED CELL DISTRI WIDTH 11.3 % (0-14.5)
[2021-05-26 13:50] LABS: ALBUMIN 3.2 gm/dl (3.1-4.5); ALKALINE PHOSPHATASE 174 U/L (45-117); BUN 10 mg/dl (7-24); CHLORIDE 103 mmol/L (98-107); CREATININE 0.96 mg/dL (0.70-1.30); LIPASE 261 U/L (73-393); POTASSIUM 3.5 mmol/L (3.5-5.1); SGOT/AST 23 IU/L (3-35); SGPT/ALT 21 U/L (12-78); SODIUM 137 mmol/L (136-145); TOTAL PROTEIN 7.2 gm/dL (6.4-8.2)
[2021-05-26 13:51] LABS: ACT PARTIAL THROMBO TIME 27.2 SECONDS (20.0-32.1); INTERNATIONAL NORM RATIO 0.9 (2.0-3.5)
== END 2021-05-26 17:42 | disposition home or self-care (01) ==
LOC: ED 12:37
PROVIDERS: Emergency Medicine
DX: R05.9 Cough, unspecified (principal); R06.02 Shortness of breath

== ENCOUNTER 2023-03-24 18:45 | Emergency (ER) | payer OTHER ==
[~2023-03-24] VITALS: Ht 167.6 cm; Wt 58.1 kg
[2023-03-24] MEDS ORDERED: PREDNISONE50 MG PO (19:34)
== END 2023-03-24 20:05 | disposition home or self-care (01) ==
LOC: ED 18:45
DX: T78.40XA Allergy, unspecified, initial encounter (principal); F17.210 Nicotine dependence, cigarettes, uncomplicated; Z79.899 Other long term (current) drug therapy; X58.XXXA Exposure to other specified factors, initial encounter

== ENCOUNTER → 2023-04-04 | Outpatient (CLI) | payer OTHER ==
[~2023-04-04] MED LIST changes: +PREDNISONE50 MG PO
[2023-04-04 14:48] LABS: BASO # 0.1 10*3/uL (0.0-0.1); BASO % 1.2 % (0.0-1.0); EOS # 0.1 10*3/uL (0.0-0.4); EOS % 1.3 % (1.0-4.0); HEMATOCRIT 45.7 % (42.0-52.0); LYMPH # 1.9 10*3/uL (1.3-4.4); LYMPH % 31.9 % (27.0-41.0); MEAN CORPUSCULAR HGB 34.4 pg (27.0-31.0); MEAN CORPUSCULAR HGB CONC 34.4 g/dl (33.0-37.0); MEAN PLATELET VOLUME 9.9 fl (9.6-12.3); MONO # 0.6 10*3/uL (0.1-1.0); MONO % 10.2 % (3.0-9.0); NEUT # 3.3 10*3/uL (2.3-7.9); NEUT % 55.2 % (47.0-73.0); PLATELET COUNT AUTOMATED 147 10*3/uL (130-400); RED BLOOD COUNT 4.57 10*6/uL (4.50-5.90); RED CELL DISTRI WIDTH 11.2 % (0-14.5)
[2023-04-04 15:23] LABS: ALKALINE PHOSPHATASE 202 U/L (46-116); BUN 6 mg/dl (9-23); CHLORIDE 106 mmol/L (98-107); CHOLESTEROL 169 mg/dL (<200); FREE T4 0.95 ng/dl (0.89-1.76); LDL CHOLESTEROL 55 mg/dL (9-159); POTASSIUM 3.7 mmol/L (3.4-5.1); SGPT/ALT 15 U/L (5-49); TOTAL PROTEIN 7.1 gm/dL (6.0-8.0); TRIGLYCERIDES 95 mg/dl (<150)
== END | disposition home or self-care (01) ==
LOC: LAB 14:09
PROVIDERS: ATTEND Internal Medicine
DX: Z12.5 Encounter for screening for malignant neoplasm of prostate (principal); M25.562 Pain in left knee; M85.852 Other specified disorders of bone density and structure, left thigh; M85.851 Other specified disorders of bone density and structure, right thigh; J44.9 Chronic obstructive pulmonary disease, unspecified; M25.561 Pain in right knee; I10 Essential (primary) hypertension

== ENCOUNTER → 2023-07-12 | Outpatient (CLI) | payer OTHER | END | disposition home or self-care (01) | LOC: LAB 13:20 | PROVIDERS: ATTEND Internal Medicine | DX: B34.9 Viral infection, unspecified (principal) ==

== ENCOUNTER → 2023-07-13 | Outpatient (CLI) | payer OTHER ==
[2023-07-13 14:33] LABS: BUN 10 mg/dl (9-23); CHLORIDE 102 mmol/L (98-107); POTASSIUM 3.8 mmol/L (3.4-5.1)
== END | disposition home or self-care (01) ==
LOC: LAB 13:51
PROVIDERS: ATTEND Internal Medicine
DX: U07.1 COVID-19 (principal)

== ENCOUNTER → 2023-09-15 | Outpatient (CLI) | payer OTHER | END | disposition home or self-care (01) | LOC: RAD 14:18 | PROVIDERS: ATTEND Internal Medicine | DX: M16.0 Bilateral primary osteoarthritis of hip (principal); M19.042 Primary osteoarthritis, left hand; M19.041 Primary osteoarthritis, right hand ==

== ENCOUNTER → 2023-10-18 | Outpatient (CLI) | payer OTHER | END | disposition home or self-care (01) | LOC: RAD 12:09 | PROVIDERS: ATTEND Internal Medicine | DX: R10.32 Left lower quadrant pain (principal); M16.12 Unilateral primary osteoarthritis, left hip ==

== ENCOUNTER 2025-01-09 15:16 | Emergency (ER) | payer SELFPAY ==
[~2025-01-09] VITALS: Ht 165.1 cm; Wt 57.6 kg
[2025-01-09] MEDS ORDERED: PREDNISONE10 M1 PO (16:16)
[2025-01-09] MEDS ORDERED: NAPROSYN500 MG PO (16:16)
== END 2025-01-09 16:27 | disposition home or self-care (01) ==
LOC: ED 15:16
DX: M19.042 Primary osteoarthritis, left hand (principal); I10 Essential (primary) hypertension; K21.9 Gastro-esophageal reflux disease without esophagitis; F17.200 Nicotine dependence, unspecified, uncomplicated